=== PATIENT | male | born 1980 | race Caucasian/White ===

== ENCOUNTER 2017-06-24 18:41 | Emergency (ER) | payer OTHER ==
[~2017-06-24] VITALS: Ht 185.4 cm; Wt 213.5 kg
[2017-06-24 18:49] VITALS: BP 158/103
[2017-06-24] MEDS ORDERED: CIPR10DR RIGHT EAR (19:46)
[2017-06-24] MEDS ORDERED: fluconazole 100mg tablet PO ONE (19:50)
== END 2017-06-24 20:09 | disposition home or self-care (01) ==
LOC: ER 18:44
DX: H60.91 Unspecified otitis externa, right ear (principal); H66.91 Otitis media, unspecified, right ear; Z88.0 Allergy status to penicillin; Z88.1 Allergy status to other antibiotic agents
CPT/HCPCS: 99284

== ENCOUNTER 2017-07-03 13:51 | Emergency (ER) | payer MEDICAID, OTHER ==
[~2017-07-03] VITALS: Ht 185.4 cm; Wt 209.0 kg
[2017-07-03 13:58] VITALS: BP 178/95
[2017-07-03] MEDS ORDERED: COROTSUS OT (14:51)
[2017-07-03] MEDS ORDERED: HYDR-565 PO (14:51)
[2017-07-03] MEDS ORDERED: CIPR-230 PO (14:51)
== END 2017-07-03 15:01 | disposition home or self-care (01) ==
LOC: ER 13:51
DX: H60.91 Unspecified otitis externa, right ear (principal); Z88.0 Allergy status to penicillin; Z98.890 Other specified postprocedural states
CPT/HCPCS: 69209; 69210; 99283; 99284

== ENCOUNTER 2017-07-11 20:48 | Emergency (ER) | payer OTHER ==
[~2017-07-11] VITALS: Ht 185.4 cm; Wt 212.1 kg
[~2017-07-11 20:48] MED LIST: CIPR-230 PO; COROTSUS OT
[2017-07-11 22:47] LABS: BASOPHILS # (AUTO) 0.1 X10'3 (0-0.2); BASOPHILS % (AUTO) 0.5 % (0-1); EOSINOPHILS # (AUTO) 0.3 X10'3 (0-0.9); EOSINOPHILS % (AUTO) 2.3 % (0-6); HEMATOCRIT 40.6 % (42.0-52.0); HEMOGLOBIN 13.7 g/dl (14.0-17.9); LYMPHOCYTES # (AUTO) 2.3 X10'3 (1.1-4.8); LYMPHOCYTES % (AUTO) 16.2 % (21-51); MEAN CORPUSCULAR HEMOGLOBIN 27.4 PG (27.0-31.0); MEAN CORPUSCULAR HGB CONC 33.9 % (33.0-36.5); MEAN CORPUSCULAR VOLUME 80.8 FL (78-98); MEAN PLATELET VOLUME 8.7 FL (7.4-10.4); MONOCYTES # (AUTO) 1.2 X10'3 (0-0.9); MONOCYTES % (AUTO) 8.7 % (2-12); NEUTROPHILS # (AUTO) 10.1 X10'3 (1.8-7.7); NEUTROPHILS % (AUTO) 72.3 % (42-75); PLATELET COUNT 259 X10'3 (140-440); RED BLOOD COUNT 5.02 X10'6 (4.70-6.10); RED CELL DISTRIBUTION WIDTH 13.9 % (11.5-14.5)
[2017-07-11 22:57] LABS: PROTHROMBIN TIME 10.2 SECONDS (9.0-12.0)
[2017-07-11 23:02] LABS: ALANINE AMINOTRANSFERASE 46 U/L (12-78); ALBUMIN 3.7 G/DL (3.4-5.0); ALBUMIN/GLOBULIN RATIO 0.9 (1.1-1.5); ALKALINE PHOSPHATASE 71 IU/L (46-116); ANION GAP 10 (8-16); ASPARTATE AMINO TRANSFERASE 24 U/L (10-37); BILIRUBIN,TOTAL 0.4 MG/DL (0.1-1.0); BLOOD UREA NITROGEN 12 MG/DL (7-18); BUN/CREATININE RATIO 16.2 (5.4-32.0); CALCIUM 9.1 MG/DL (8.5-10.1); CHLORIDE 105 MMOL/L (99-107); CREATININE 0.74 MG/DL (0.60-1.10); GLUCOSE 106 MG/DL (70-104); SODIUM 142 MMOL/L (135-145); TOTAL CARBON DIOXIDE 27.3 MMOL/L (24-32); TOTAL PROTEIN 7.7 G/DL (6.4-8.2); eGFR > 90 ML/MIN
[2017-07-11] MEDS ORDERED: fluconazole 100mg tablet PO ONE (23:40)
[2017-07-11] MEDS ORDERED: dicyclomine 10 MG capsule PO ONE (23:40)
[2017-07-12] MEDS ORDERED: fluconazole 100mg tablet PO ONE (00:20)
[2017-07-12] MEDS ORDERED: fluconazole 150mg tablet PO ONE (00:30)
[2017-07-12 00:35] VITALS: BP 141/83
== END 2017-07-12 00:36 | disposition home or self-care (01) ==
LOC: ER 20:49
DX: R10.84 Generalized abdominal pain (principal); H60.311 Diffuse otitis externa, right ear; Z90.49 Acquired absence of other specified parts of digestive tract; Z88.0 Allergy status to penicillin; Z88.1 Allergy status to other antibiotic agents
CPT/HCPCS: 36415; 74018; 80053; 85025; 85610; 99285